=== PATIENT | female | born 1950 | race Caucasian/White ===

== ENCOUNTER → 2017-12-09 | Outpatient (CLI) | payer BC ==
[2017-12-09 13:43] LABS: ADD MAN DIFF? NO
[2017-12-09 13:46] LABS: WHITE BLOOD COUNT 12.5 10^3/ul (4.8-10.8)
[2017-12-09 13:46] LABS: BASOPHIL # 0.1 10^3/ul (0.0-0.1); BASOPHILS % 0.9 % (0.0-2.0); EOSINOPHILS # 0.6 10^3/ul (0.0-0.5); EOSINOPHILS % 4.4 % (0.0-7.0); HEMATOCRIT 38.3 % (37.0-47.0); HEMOGLOBIN 12.6 g/dl (12.0-16.0); LYMPHOCYTES # 3.7 10^3/ul (0.8-2.9); LYMPHOCYTES % 29.4 % (15.0-51.0); MEAN CORPUSCULAR HEMOGLOBIN 30.5 pg (29.0-33.0); MEAN CORPUSCULAR HGB CONC 32.9 g/dl (32.0-37.0); MEAN CORPUSCULAR VOLUME 92.7 fl (82.0-101.0); MEAN PLATELET VOLUME 9.8 fl (7.4-10.4); MONOCYTE # 0.8 10^3/ul (0.3-0.9); MONOCYTES % 6.6 % (0.0-11.0); NEUTROPHIL # 7.2 10^3/ul (1.6-7.5); NEUTROPHILS % 57.8 % (39.0-77.0); PLATELET COUNT 360 10^3/UL (140-415); RED BLOOD COUNT 4.13 10^6/ul (4.20-5.40); RED CELL DISTRIBUTION WIDTH 12.5 % (11.5-14.5)
[2017-12-09 14:05] LABS: ALANINE AMINOTRANSFERASE 34 IU/L (13-69); ALBUMIN 4.5 g/dl (3.3-4.9); ALBUMIN/GLOBULIN RATIO 1.45; ALKALINE PHOSPHATASE 61 IU/L (42-121); AMYLASE 77 U/L (11-123); ANION GAP 15 (8-16); ASPARTATE AMINO TRANSFERASE 29 IU/L (15-46); BILIRUBIN,INDIRECT 0.1 mg/dl (0-1.1); BILIRUBIN,TOTAL 0.1 mg/dl (0.2-1.3); BLOOD UREA NITROGEN 19 mg/dl (7-20); CALCIUM 9.9 mg/dl (8.4-10.2); CARBON DIOXIDE 27 mmol/L (21-31); CHLORIDE 105 mmol/L (97-110); CHOL/HDL RATIO 4.4 RATIO; CHOLESTEROL 214 mg/dl (100-200); CREATININE 0.77 mg/dl (0.44-1.00); GLUCOSE 103 mg/dl (70-220); HDL CHOLESTEROL 48 mg/dl (35-98); LDL CHOLESTEROL,CALCULATED 129 mg/dl; LIPASE 153 U/L (23-300); POTASSIUM 4.3 mmol/L (3.5-5.1); SODIUM 143 mmol/L (135-144); TOTAL PROTEIN 7.6 g/dl (6.1-8.1); TRIGLYCERIDES 186 mg/dl (0-149)
== END | disposition home or self-care (01) ==
LOC: LAB 12:31
DX: I10 Essential (primary) hypertension (principal); E78.5 Hyperlipidemia, unspecified; R10.13 Epigastric pain
CPT/HCPCS: 80053; 80061; 82150; 83690; 84443; 85025

== ENCOUNTER → 2018-02-08 | Outpatient (CLI) | payer BC | END | disposition home or self-care (01) | LOC: U/S 08:06 | DX: N95.0 Postmenopausal bleeding (principal); R10.32 Left lower quadrant pain | CPT/HCPCS: 76830; 76856 ==

== ENCOUNTER → 2018-02-14 | Outpatient (CLI) | payer BC ==
[2018-02-14 14:22] LABS: ANION GAP 17 (8-16); BLOOD UREA NITROGEN 19 mg/dl (7-20); CARBON DIOXIDE 26 mmol/L (21-31); CHLORIDE 101 mmol/L (97-110); CREATININE 0.86 mg/dl (0.44-1.00); GLUCOSE 136 mg/dl (70-220); POTASSIUM 4.9 mmol/L (3.5-5.1); SODIUM 139 mmol/L (135-144)
[2018-02-15] MEDS: BARIUM SULF 2% 450 ML BTL (BERRY SMOOTHIE) PO ×2 (08:39)
[2018-02-15] MEDS: IOHEXOL 300MG/ML 150 ML BTL (08:56)
[2018-02-15] MEDS: SOD CHLORIDE 0.9% 100 ML (08:56)
== END | disposition home or self-care (01) ==
LOC: LAB 13:50
DX: I10 Essential (primary) hypertension (principal)
CPT/HCPCS: 80048

== ENCOUNTER → 2018-02-15 | Outpatient (CLI) | payer BC ==
[2018-02-15] MEDS: IOHEXOL 300MG/ML 150 ML BTL (09:05)
[2018-02-15] MEDS: SOD CHLORIDE 0.9% 100 ML (09:06)
== END | disposition home or self-care (01) ==
LOC: C/S 08:00
DX: R10.32 Left lower quadrant pain (principal)
CPT/HCPCS: 74178

== ENCOUNTER 2018-12-18 05:44 | Emergency (ER) | payer BC ==
[2018-12-18] MEDS: AMOXICILLIN/CLAV 875 MG TAB PO (06:10)
== END 2018-12-18 06:11 | disposition home or self-care (01) ==
LOC: E/R 05:44
DX: S61.451A Open bite of right hand, initial encounter (principal); S60.031A Contusion of right middle finger without damage to nail, initial encounter; W55.01XA Bitten by cat, initial encounter; Y92.9 Unspecified place or not applicable
CPT/HCPCS: 99283